=== PATIENT | male | born 1960 | race Caucasian/White ===

== ENCOUNTER 2020-09-09 17:41 | Inpatient (IN) | payer OTHER ==
[~2020-09-09] VITALS: Ht 162.6 cm; Wt 90.9 kg
[2020-09-09 20:07] VITALS: BP 133/85
[2020-09-09 20:12] LABS: BASOPHILS 0.5 % (0-2); EOSINOPHILS 0.3 % (0-7); HEMATOCRIT 46.2 % (42.0-54.0); HEMOGLOBIN 15.5 g/dL (13.5-17.5); LYMPHOCYTES 16.3 % (15-50); MCH 31.3 pg (26.0-34.0); MCHC 33.6 g/dL (31.0-37.0); MCV 93.3 fL (80.0-100.0); MONOCYTES 13.3 % (2-11); NEUTROPHILS 69.6 % (40-80); PLATELET COUNT 155 10x3/uL (130-400); RBC 4.95 10x6/uL (4.20-6.10); RDW 13.5 % (11.5-14.5); WBC 11.7 10x3/uL (4.8-10.8)
[2020-09-09 20:35] LABS: CALC OSMOLALITY 267 mosm/kg (275-300); CALCIUM 8.5 mg/dL (8.5-10.1); CARBON DIOXIDE 20.9 mmol/L (21.0-32.0); CHLORIDE - SERUM 94 mmol/L (98-107); GLUCOSE 104 mg/dL (74-106); POTASSIUM - SERUM 3.3 mmol/L (3.5-5.1); SODIUM 132 mmol/L (136-145); UREA NITROGEN 20 mg/dL (7-18); eGFR NON AFRICAN AMERICAN 81 mL/min (90-120)
[2020-09-09 20:44] LABS: ALBUMIN 3.6 g/dL (3.4-5.0); ALKALINE PHOSPHATASE 79 U/L (30-120); ALT (SGPT) 32 U/L (10-68); BILIRUBIN - TOTAL 0.87 mg/dL (0.2-1.3)
--- NOTE | 2020-09-09 20:46 | NUR ---
PT TO RADIOLOGY VIA STRETCHER
--- NOTE | 2020-09-09 21:04 | NUR ---
PT RETURNED FROM RADIOLOGY VIA STRETCHER
--- NOTE | 2020-09-09 22:01 | NUR ---
RT AT BEDSIDE TO DRAW ABGS
[2020-09-09 22:25] LABS: SARS-CoV-2 ANTIGEN NEGATIVE- SARS-COV-2 (NEGATIVE)
[2020-09-09 22:32] VITALS: BP 107/70
[2020-09-09 22:44] LABS: PRO BNP 111 pg/mL (0-125)
[2020-09-09 22:49] LABS: TROPONIN-I < 0.017 ng/mL (0.000-0.060)
--- NOTE | 2020-09-09 23:37 | NUR ---
PT GIVEN BLANKET, DENIES FURTHER NEEDS. CALL LIGHT IN REACH.
[2020-09-10] VITALS (8 sets, daily range): BP systolic 114–146; BP diastolic 69–83; Ht 162.6 cm; Wt 90.9 kg
--- NOTE | 2020-09-10 01:26 | NUR ---
PT HEAD OF BED ADJUSTED TO LEVEL OF COMFORT. DENIES FURTHER NEEDS. CALL LIGHT IN REACH.
[2020-09-10 03:14] LABS: BILIRUBIN NEGATIVE (NEGATIVE); KETONE 1+ mg/dL (< 1+); NITRITE NEGATIVE (NEGATIVE); UROBILINOGEN 2 mg/dL (< 2)
[2020-09-10 03:21] LABS: UDS - AMPHET POSITIVE QUAL (NEGATIVE); UDS - BARB NEGATIVE QUAL (NEGATIVE); UDS - BENZO NEGATIVE QUAL (NEGATIVE); UDS - COCAINE NEGATIVE QUAL (NEGATIVE); UDS - OPIATE NEGATIVE QUAL (NEGATIVE); UDS - PCP NEGATIVE QUAL (NEGATIVE); UDS - THC POSITIVE QUAL (NEGATIVE)
--- NOTE | 2020-09-10 04:41 | NUR ---
ANSWERED PT'S CALL LIGHT, PT REQUEST HEAD OF BED TO BE LOWERED. DENIES FURTHER NEEDS. CALL LIGHT IN REACH.
[2020-09-10 05:59] LABS: BASOPHILS 0.1 % (0-2); EOSINOPHILS 0 % (0-7); HEMATOCRIT 41.4 % (42.0-54.0); HEMOGLOBIN 14.2 g/dL (13.5-17.5); LYMPHOCYTES 9.3 % (15-50); MCHC 34.3 g/dL (31.0-37.0); MCV 93.2 fL (80.0-100.0); MEAN PLATELET VOLUME 10.3 fL (7.4-10.4); MONOCYTES 8.3 % (2-11); NEUTROPHILS 82.3 % (40-80); PLATELET COUNT 140 10x3/uL (130-400); RBC 4.45 10x6/uL (4.20-6.10); RDW 13.5 % (11.5-14.5); WBC 6.9 10x3/uL (4.8-10.8)
[2020-09-10 06:19] LABS: ALKALINE PHOSPHATASE 71 U/L (30-120); ALT (SGPT) 31 U/L (10-68); BILIRUBIN - TOTAL 0.74 mg/dL (0.2-1.3); CALCIUM 8.1 mg/dL (8.5-10.1); CHLORIDE - SERUM 99 mmol/L (98-107); GLUCOSE 128 mg/dL (74-106); PROTEIN - SERUM 7.2 g/dL (6.4-8.2); SODIUM 133 mmol/L (136-145)
[2020-09-10 06:20] LABS: CALC OSMOLALITY 268 mosm/kg (275-300); CREATININE - SERUM 0.7 mg/dL (0.6-1.3); POTASSIUM - SERUM 4.4 mmol/L (3.5-5.1); UREA NITROGEN 14 mg/dL (7-18); eGFR NON AFRICAN AMERICAN > 90 mL/min (90-120)
--- NOTE | 2020-09-10 11:42 | NUR ---
RECEIVED TO ROOM VIA STRETCHER. ON 4L PER PORTABLE. LEFT AC IS INFUSING WITH NS TO GRAVITY. PLACED TO PUMP AT 75 CC/HR. BILATERAL LUNGS SOUNDS WITH WHEEZES AND CRACKLES. STATES TO COUGHING WHITE STUFF UP. WILL ADMIT.
--- NOTE | 2020-09-10 14:01 | HP ---
PATIENT: MIKHAIL GAUTAM MEDICAL RECORD: [id number] ACCOUNT: [id number] LOCATION:[address] : 62 ADMISSION DATE: 09/09/20 PCP: No PCP HISTORY AND PHYSICAL EXAMINATION REASON FOR ADMISSION: Back pain and cough. HISTORY OF PRESENT ILLNESS: The patient is a 60-year-old male who presented to the ER last evening. He complains of right-sided back pain, been got progressively worse over the last several weeks. 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 The pain radiated to his right hip down to his knee. He said he has been soaking in a tub of Epsom salts and notes he has had some chills. He had a little cough as well. He denies change in taste or smell, nausea, vomiting, or headache. He has not had COVID vaccination, but no known exposure. PAST MEDICAL HISTORY: Essentially negative. PAST SURGICAL HISTORY: Negative. ALLERGIES: None known. MEDICATIONS: None. FAMILY HISTORY: Parents are . Mother from Alzheimer's. Father from diabetes complications. SOCIAL HISTORY: He is . He has 2 sons. 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 He smokes cigars, has smoked some marijuana and uses some amphetamines due to his current co-workers habits he states. He does not use alcohol. REVIEW OF SYSTEMS: GENERAL: He has had some chills, but no documented fever. HEENT: No recent visual change, sinus congestion, sore throat. RESPIRATORY: He has had mild cough, nonproductive. No shortness of breath or hemoptysis. CARDIAC: No palpitations, PND, orthopnea, history of chest pain. GASTROINTESTINAL: No nausea or change in stools. GENITOURINARY: No incontinence, dysuria, or nocturia. ENDOCRINE: Denies polyuria, polydipsia, heat or cold intolerance. NEUROLOGIC: No history of stroke, TIA, vascular headaches, or seizures. PSYCHIATRIC: Denies depressed mood or depression. MUSCULOSKELETAL: He has pain in his lower lumbar spine with raising his leg radiates into his left posterior knee. PHYSICAL EXAMINATION: VITAL SIGNS: His temperature is 98.2, pulse is 118, respirations are 18, blood pressure 132/80 with a sat of 98% on room air. GENERAL: The patient is alert and oriented, gives a good history. HEENT: His eyes are clear. Oropharynx unremarkable. NECK: Supple. CHEST: Distant breath sounds with crackles in the right base. No wheezes. HEART: Regular rate and rhythm. ABDOMEN: Obese, nontender. HISTORY AND PHYSICAL [id number] MIKHAIL GAUTAM GENITOURINARY: Deferred. EXTREMITIES: He has no peripheral edema or cyanosis. MUSCULOSKELETAL: He has pain in his lower lumbar spine with forward flexion, weakly positive straight leg raise at 90 degrees on the right to the level of the knee. He has intact sensation in lower extremities and pulses are intact as well. No tremors appreciated. LABORATORY DATA AND DIAGNOSTIC STUDIES: His labs showed sodium 132, potassium 3.3, BUN is 20, glucose 104. Lactic acid is elevated. D-dimer 0.47. White count 11.7 thousand with a left shift, H&H is 15 and 46 respectively. Blood gas shows a pO2 of 56, pCO2 of 32, pH of 7.413. COVID antigen is negative. CT abdomen and pelvis was performed showing infiltrate in the right upper, right middle and right lower lobe; acute fracture of the L3 lateral process with chronic fractures of the left posterior ribs. Urine drug screen was positive for THC and amphetamines. ASSESSMENT: 1. L3 lateral process fracture with low back pain and sciatica. 2. Community-acquired pneumonia with hypoxemia. 3. Recreational drug abuse. PLAN: The patient will be admitted to [facility] isolation rule out. Pulmonary has been consulted. Continue antibiotics as ordered. Further workup of his lumbar compression fracture if indicated. TRANSINT:[id number] Voice Confirmation ID: [id number] DOCUMENT ID: [id number] KAI DODD MD at 1401 CC: [id number] DICTATION DATE: 09/10/20 0748 VOLUNTEER RECRUITMENT COORDINATOR: 09/10/20 0832 ADM IN [facility] [address] [place] [address]
--- NOTE | 2020-09-10 18:13 | NUR ---
DR VERDUZCO IN TO SEE PATIENT. NO FURTHER NEEDS VOICED FOR THIS SHIFT.
--- NOTE | 2020-09-10 19:00 | NUR ---
REPORT RECEIVED. PATIENT IS AAOX4, LYING IN SEMI-FOWLERS POSITION. NO S/S OF DISTRESS OBSERVED, RR EVEN AND UNLABORED ON 4L O2 VIA NC. PIV TO LT AC, PATENT, INFUSING NS @ 75ML/HR. PATIENT DENIES NEEDS AT THIS TIME. CL IN REACH, BED LOCKED AND LOWERED. WILL CPOC.
[2020-09-11 01:13] VITALS: BP 132/79
[2020-09-11 01:20] VITALS: BP 126/81
--- NOTE | 2020-09-11 04:48 | NUR ---
PATIENT ACCIDENTALLY PULLED OUT HIS PIV WITH CATH TIP INTACT. NEW 22G PIV INSERTED TO RT FA WITH GOOD BLOOD RETURN AND FLUSHES WITH EASE. IV FLUIDS RESTARTED.
--- NOTE | 2020-09-11 07:20 | NUR ---
RECIEVE REPORT. ALERT AND ORIENTED X4. SITTING UP IN BED WATCHING TV. DENIES ANY NEEDS. CONTINUE PLAN OF CARE AND SAFETY PRECAUTIONS. SINUS RHYTHM ON TELEMETRY.
[2020-09-11 08:08] LABS: C-REACTIVE PROTEIN 9.2 mg/dL (0.0-0.9)
[2020-09-11 16:53] VITALS: BP 113/58
[2020-09-11 20:35] VITALS: BP 124/64
[2020-09-12 01:21] VITALS: BP 121/72
--- NOTE | 2020-09-12 07:20 | NUR ---
RECIEVE REPORT. ALERT AND ORIENTED X4. SITTING UP IN BED WATCHING TV. DENIES ANY NEEDS. CONTINUE PLAN OF CARE AND SAFETY PRECAUTIONS.
[2020-09-12 09:00] VITALS: BP 104/82
[2020-09-12 12:00] VITALS: BP 123/74
--- NOTE | 2020-09-12 15:20 | NUR ---
ALERT AND ORIENTED X4. SITTING UP IN BED. CLARIFY WITH PATIENT PERMISSION TO SPEAK WITH DAUGHTER PAMELA GAUTAM. PERMISSION APPROVED. CALL PAMELA BACK FOR UPDATE.
--- NOTE | 2020-09-12 19:27 | NUR ---
RECEIVED BEDSIDE REPORT. ROUNDING COMPLETE. PATIENT IS ALERT AND ORIENTED, RESTING COMPLETE. RESPIRATIONS ARE EVEN AND UNLABORED. NO S/S OF DISTRESS. NO C/O PAIN. CALL LIGHT WITHIN REACH. WILL CPOC.
[2020-09-13 00:04] VITALS: BP 123/69
[2020-09-13 05:10] VITALS: BP 135/75
--- NOTE | 2020-09-13 07:20 | NUR ---
RECIEVE REPORT. ALERT AND ORIENTED X4. SITTING UP IN BED. DENIES ANY NEEDS. SINUS RHYTHM ON TELEMETRY. DENIES ANY NEEDS. CONTINUE PLAN OF CARE AND SAFETY PRECAUTIONS.
[2020-09-13 08:00] VITALS: BP 115/79
[2020-09-13 12:00] VITALS: BP 123/75
[2020-09-13 16:00] VITALS: BP 127/72
[2020-09-13 21:21] VITALS: BP 132/66
[2020-09-14 00:27] VITALS: BP 124/77
[2020-09-14 06:16] VITALS: BP 126/80
--- NOTE | 2020-09-14 07:00 | NUR ---
PT LYING IN BED WITH EYES CLOSED AND HOB ELEVATED 30 DEGREES. RESP EVEN AND UNLABORED. O2 [address]PM [address] NC IN PL[address] RAISES TO VERBAL STIMULI. AAO X4. DENIES NEEDS AT THIS TIME. CLIR. BED IN LOWEST POSITION. SIDE RAILS X2
[2020-09-14 09:00] VITALS: BP 126/68
--- NOTE | 2020-09-14 11:41 | NUR ---
I have reviewed this patient and I concur with the Shift Assessment completed by the Licensed Practical Nurse today this shift.
[2020-09-14 12:00] VITALS: BP 122/70
[2020-09-14 20:16] VITALS: BP 111/60
[2020-09-14 23:46] VITALS: BP 113/73
[2020-09-15 05:24] VITALS: BP 114/80
[2020-09-15] MEDS ORDERED: MEDROL DOSE PACK4 MG PO (07:55)
[2020-09-15] MEDS ORDERED: PROAIR HFA8.5 G1 INH (07:56)
[2020-09-15 08:53] VITALS: BP 119/73
--- NOTE | 2020-09-15 10:07 | NUR ---
DISCHARGE INSTRUCTIONS WITH PATIENT AND TO CAR TO MEET AUNT VIA W/C.
--- NOTE | 2020-09-15 14:43 | MORECARE ---
CASE MANAGEMENT DISCHARGE SUMMARY PATIENT: MIKHAIL GAUTAM UNIT: [id number] ADM DATE: 09/09/20 AGE: 60 : 62 SEX: M ROOM/BED: D.2135 AUTHOR: SAMARA,DOC PHYSICIAN: REFERRING PHYSICIAN: KAI DODD MD DATE OF SERVICE: 09/15/20 Case Management Discharge Planning Summary COMMENTS ENTERED DATE: 09/15/20 14:40 CT COMMENT TYPE: Discharge Planning REVIEWER: Chari Leoms CM met with patient to complete discharge planning assessment and offer availability of needed services. Patient states that he lives independently at home with his son prior to admission. Pt verified that home environment is safe and has electricity and running water. Patient denies need for transportation and state that they have funds for services and medications if needed. PCP is [place] and patient uses [facility] pharmacy. CM offered and discussed home health, rehab services, and need for any medical equipment. Patient did not express need for offered services. Patient verbalized understanding of signed forms. IMM served, and signed copy placed on chart. DCP REVIEW SUMMARY ANTICIPATED D/C DATE: 09/15/2020 EXPECTED LOS : 6 CASE STATUS: DCP Initiated INITIAL REVIEW: 09/09/2020 INITIAL REVIEWER: Chari Lemos FINAL DISCHARGE DISPOSITION: : FINAL REVIEWER: FINAL REVIEW DATE: DCP Focus Questions & Answers DCP Screen QUESTION: ANSWER High Risk Factors: : None Walking limitation: Patient stated self rated walking limitation present? : No Age: : 45 - 64 Prior living environment: : Lives with others DCP Evaluation QUESTION: ANSWER Patient and/or caregiver agree upon recommended discharge plan? : Yes Family / Caregiver's ability to cope with chronic illness: : a. Adequate (ability to meet patient's medical needs, ensures patient attends medical appts.) Patient's current cognitive status: : *Oriented to person, place, situation, time and present Patient's ability to cope with chronic illness : d. No chronic illness Does the patient have the ability to pay for or attain post discharge needs / services? : Yes Functional screen assessment: : Noticeable poor ADL management Family / Caregiver's ability to cope with chronic illness: : a. Adequate (ability to meet patient's medical needs, ensures patient attends medical appts.) Physical Status: : Independent with ADL's Equipment needed for post hospitalization: : None Is there a likelihood that the patient will require additional services to return to the preadmission environment? : N/A Living Arrangements: : Home with others Results of this evaluation have been discussed with: : Patient Patient with capacity for self-care or can be cared for in same environment as prior to hospitalization? : Yes Baseline cognitive status: : *Oriented to person, place, situation, time and present Physical environment modification needed / anticipated for discharge: : N/A Medication Management: : Patient states they do have transportation to bean [facility]er medications Medication Management: : Patient states can afford medications Planned post hospital services available for patient? : N/A Pharmacy name(s): : [facility] Planned post hospital services covered by insurance plan? : N/A Does Patient have transportation to get home and to follow-up medical appointments when discharged from the hospital? : Yes Would patient like to participate in any Care Coordination programs (if applicable): : Not applicable Does the patient have electricity at home? : Yes Does the patient have running water in their house? : Yes Equipment in use: : None Mental health screen: : No mental health history Psychosocial status: : Independent adult (18-64) Abuse/Neglect: : None Resources / Services in place: : None DCP Re-evaluation QUESTION: ANSWER Would patient like to participate in any Care Coordination programs (if applicable): : Not applicable PATIENT: MIKHAIL GAUTAM ENCOUNTER: [id number] MEDICAL RECORD#: [id number] ADMISSION DATE: 09/09/2020 DISCHARGE DATE: 09/15/2020 ATTENDING MD: KAI CERDA : AGE: 60 MARITAL STATUS: S DC PLAN ID: [id number] FACILITY: [facility] PRINTED ON: 09/15/20 14:43 CT All edits/amendments must be made on the electronic document DICTATION DATE: 09/15/20 144 WING COVERER: VESTA 09/15/20 144 RPT#: [id number] DC DATE:09/15/20 STATUS: DIS IN [facility] [address] [place] [address] END OF REPORT
--- NOTE | 2020-09-19 15:44 | MORECARE ---
CASE MANAGEMENT DISCHARGE SUMMARY PATIENT: MIKHAIL GAUTAM UNIT: [id number] ADM DATE: 09/09/20 AGE: 60 : 62 SEX: M ROOM/BED: D.2135 AUTHOR: SAMARA,DOC PHYSICIAN: REFERRING PHYSICIAN: KAI DODD MD DATE OF SERVICE: 09/19/20 Case Management Discharge Planning Summary COMMENTS ENTERED DATE: 09/15/20 14:40 CT COMMENT TYPE: Discharge Planning REVIEWER: Chari Lemos CM met with patient to complete discharge planning assessment and offer availability of needed services. Patient states that he lives independently at home with his son prior to admission. Pt verified that home environment is safe and has electricity and running water. Patient denies need for transportation and state that they have funds for services and medications if needed. PCP is [place] and patient uses [facility]. CM offered and discussed home health, rehab services, and need for any medical equipment. Patient did not express need for offered services. Patient verbalized understanding of signed forms. IMM served, and signed copy placed on chart. DCP REVIEW SUMMARY ANTICIPATED D/C DATE: 09/15/2020 EXPECTED LOS : 6 CASE STATUS: DCP Complete INITIAL REVIEW: 09/09/2020 INITIAL REVIEWER: Chari Lemos FINAL DISCHARGE DISPOSITION: : FINAL REVIEWER: FINAL REVIEW DATE: DCP Focus Questions & Answers DCP Screen QUESTION: ANSWER High Risk Factors: : None Walking limitation: Patient stated self rated walking limitation present? : No Age: : 45 - 64 Prior living environment: : Lives with others DCP Evaluation QUESTION: ANSWER Patient's ability to cope with chronic illness : d. No chronic illness Patient's current cognitive status: : *Oriented to person, place, situation, time and present Family / Caregiver's ability to cope with chronic illness: : a. Adequate (ability to meet patient's medical needs, ensures patient attends medical appts.) Patient and/or caregiver agree upon recommended discharge plan? : Yes Physical Status: : Independent with ADL's Family / Caregiver's ability to cope with chronic illness: : a. Adequate (ability to meet patient's medical needs, ensures patient attends medical appts.) Functional screen assessment: : Noticeable poor ADL management Does the patient have the ability to pay for or attain post discharge needs / services? : Yes Living Arrangements: : Home with others Is there a likelihood that the patient will require additional services to return to the preadmission environment? : N/A Equipment needed for post hospitalization: : None Baseline cognitive status: : *Oriented to person, place, situation, time and present Patient with capacity for self-care or can be cared for in same environment as prior to hospitalization? : Yes Results of this evaluation have been discussed with: : Patient Physical environment modification needed / anticipated for discharge: : N/A Medication Management: : Patient states can afford medications Medication Management: : Patient states they do have transportation to [facility] medications Pharmacy name(s): : [facility] Planned post hospital services available for patient? : N/A Does Patient have transportation to get home and to follow-up medical appointments when discharged from the hospital? : Yes Planned post hospital services covered by insurance plan? : N/A Would patient like to participate in any Care Coordination programs (if applicable): : Not applicable Does the patient have electricity at home? : Yes Does the patient have running water in their house? : Yes Equipment in use: : None Mental health screen: : No mental health history Psychosocial status: : Independent adult (18-64) Abuse/Neglect: : None Resources / Services in place: : None DCP Re-evaluation QUESTION: ANSWER Would patient like to participate in any Care Coordination programs (if applicable): : Not applicable PATIENT: MIKHAIL GAUTAM ENCOUNTER: [id number] MEDICAL RECORD#: [id number] ADMISSION DATE: 09/09/2020 DISCHARGE DATE: 09/15/2020 ATTENDING MD: KAI CERDA : AGE: 60 MARITAL STATUS: S DC PLAN ID: [id number] FACILITY: [facility] PRINTED ON: 09/19/20 15:43 CT All edits/amendments must be made on the electronic document DICTATION DATE: 09/19/20 1543 DIRECTOR OF OPERATIONS: VESTA 09/19/20 1543 RPT#: [id number] DC DATE:09/15/20 STATUS: DIS IN [facility] [address] [place] [address] END OF REPORT
== END 2020-09-15 10:10 | disposition home or self-care (01) | DRG 190 ==
LOC: D.ER 17:41 → D.M2 22:58 → D.EDHOLD 22:58 → D.M2 09-10 08:31
PROVIDERS: Family Medicine; Internal Medicine Pulmonary Disease; ADMIT Family Medicine; ATTEND Family Medicine
DX: J44.0 Chronic obstructive pulmonary disease with (acute) lower respiratory infection (principal); J18.9 Pneumonia, unspecified organism; S32.039A Unspecified fracture of third lumbar vertebra, initial encounter for closed fracture; E87.1 Hypo-osmolality and hyponatremia; E87.2 Acidosis; J98.11 Atelectasis; J44.1 Chronic obstructive pulmonary disease with (acute) exacerbation; X50.0XXA Overexertion from strenuous movement or load, initial encounter; F15.10 Other stimulant abuse, uncomplicated; F12.10 Cannabis abuse, uncomplicated; M54.30 Sciatica, unspecified side; Z20.822 Contact with and (suspected) exposure to COVID-19; M54.16 Radiculopathy, lumbar region